=== PATIENT | female | born 1985 | race Caucasian/White ===

== ENCOUNTER → 2016-10-18 | Outpatient (CLI) | payer OTHER ==
--- NOTE | 2016-10-18 10:26 | MR ---
EXAMINATION TYPE: MR number spine wo con DATE OF EXAM: 10/18/2016 COMPARISON: NONE HISTORY: cervcialgia lumbago TECHNIQUE: T1 and T2 axial and sagittal images of the lumbar spine are submitted. FINDINGS: There is no abnormal signal seen within the visualized spinal cord or paraspinal soft tissu es. At L1-2 there is no disc herniation, canal stenosis, or foraminal encroachment. At L2-3 there is no disc herniation, canal stenosis, or foraminal encroachment At L3-4 there is no disc herniation, canal stenosis, or foraminal encroachment At L4-5 there is no disc herniation or canal stenosis, however, there is right lateral disc bulging w ith mild right-sided foraminal encroachment but no definite nerve root contact. At L5-S1 there is mild disc desiccation. Mild right lateral disc bulging results in mild right-sided foraminal encroachment. IMPRESSION: 1. Mild disc desiccation and right lateral disc bulging L5-S1 with mild right foraminal encroachment. 2. Right lateral disc bulging L4-L5 with mild right-sided foraminal encroachment but no nerve root co ntact. EXAMINATION TYPE: MR cervical spine wo con DATE OF EXAM: 10/18/2016 COMPARISON: NONE HISTORY: cervcialgia lumbago TECHNIQUE: T1 sagittal and coronal, T2 sagittal, and gradient echo axial views of the cervical spine are submitted. FINDINGS: Cerebellar tonsils are low-lying in position measuring approximately 2 mm below the foramen magnum. No tonsillar beaking.. There is no abnormal signal seen within the spinal cord or paraspina l soft tissues. At C2-3 there is no disc herniation, canal stenosis, or foraminal encroachment At C3-4 there is no disc herniation, canal stenosis, or foraminal encroachment At C4-5 there is minimal right paracentral disc bulging but no canal stenosis or foraminal encroachme nt. At C5-6 there is there is hypertrophic change of the uncovertebral joints and posterior spondylosis w ith broad-based disc bulging capped by spur. No Canal stenosis. Neural foramina remain patent. At C6-7 there is no disc herniation, canal stenosis, or foraminal encroachment At C7-T1 there is no disc herniation, canal stenosis, or foraminal encroachment IMPRESSION: 1. At C5-C6 there is posterior spondylosis and hypertrophic change of the uncovertebral joints with mild posterior disc bulging but no canal stenosis or foraminal encroachment. 2. Low-lying cerebellar tonsils.
--- NOTE | 2016-10-18 10:46 | XR ---
EXAMINATION TYPE: XR Hip Bilateral Complete DATE OF EXAM: 10/18/2016 CLINICAL HISTORY: Chronic bilateral hip pain TECHNIQUE: AP and frogleg views of the bilateral hips are obtained. COMPARISON: None. FINDINGS: There is no acute fracture/dislocation evident in either hip. The joint space in the bila teral hips appears within normal limits. There is os acetabuli on the left noted. Metallic IUD overli es the pelvis. IMPRESSION: No significant finding is seen to account for patient's symptoms.
--- NOTE | 2016-10-18 10:46 | XR ---
EXAMINATION TYPE: XR knee complete bilateral DATE OF EXAM: 10/18/2016 CLINICAL HISTORY: Chronic bilateral knee pain TECHNIQUE: Three views of the bilateral knees are obtained. COMPARISON: None. FINDINGS: There is no acute fracture/dislocation evident in either knee. The tri-compartment joint spaces appear within normal limits. There is broad-based bony projection from proximal tibial metaphy sis medial aspect left knee felt to reflect osteochondroma. The overlying soft tissue appears unrema rkable. IMPRESSION: There is left-sided osteochondroma suspected otherwise unremarkable study
--- NOTE | 2016-10-18 10:48 | XR ---
EXAMINATION TYPE: XR sacroiliac joint comp BILAT DATE OF EXAM: 10/18/2016 COMPARISON: NONE HISTORY: Sacroiliac joint pain TECHNIQUE: 2 views of sacroiliac joints are obtained. FINDINGS: Sacroiliac joints are symmetric and felt within normal limits. No suspicious spurring or sc lerosis is seen. No suspicious widening is present. Metallic IUD overlies the lower sacrum. IMPRESSION: As above.
== END | disposition home or self-care (01) ==
LOC: RADMRIMAIN 09:15
PROVIDERS: ATTEND Psychiatry & Neurology Pain Medicine
DX: M50.222 Other cervical disc displacement at C5-C6 level (principal); M51.27 Other intervertebral disc displacement, lumbosacral region; M47.812 Spondylosis without myelopathy or radiculopathy, cervical region; M25.561 Pain in right knee; M25.562 Pain in left knee; M25.551 Pain in right hip; M25.552 Pain in left hip
CPT/HCPCS: 72141; 72148; 72202; 73521

== ENCOUNTER 2017-11-08 14:31 | Emergency (ER) | payer OTHER ==
[2017-11-08 14:38] VITALS: BP 127/87; PULSE 77; RESP 16; TEMP 98.4
[2017-11-08] MEDS ORDERED: CYCLOBENZAPRINE 10 MG TAB PO STA (14:49)
[2017-11-08] MEDS ORDERED: KETOROLAC 60 MG/2 ML VIAL IM STA (14:49)
--- NOTE | 2017-11-08 14:54 | ED ---
Neck Injury/Pain HPI - General Chief Complaint: Neck Pain/Injury Stated Complaint: Neck pain Time Seen by Provider: 11/08/17 14:42 Source: patient, RN notes reviewed Mode of arrival: ambulatory Limitations: no limitations - History of Present Illness Initial Comments: 31-year-old female presented emergency department with chief complaint of left- sided neck pain. She states she woke up at 3 days ago. She states it hurts when she bends or twists her neck. Patient states that if she holds still. She states that she does have some improvement with anti-inflammatories and heat. Patient had issues with this in the past and she states muscle relaxers have improved her symptoms. Patient states that she was seen at [facility] exacerbation of her chronic back issues and was not given any medications. Patient had an MRI 6 months ago which showed bone sprain. She states she has some symptoms that radiate down her left arm denies any focal weakness or paresthesias. Denies any chest pain, shortness breath, palpitations. - Related Data Home Medications Medication Instructions Recorded Confirmed ALPRAZolam [Xanax] 0.25 mg PO BID PRN 05/14/14 05/14/14 Previous Rx's Medication Instructions Recorded Ciprofloxacin HCl [Cipro] 500 mg PO Q12HR 7 Days tablet 05/14/14 Cyclobenzaprine [Flexeril] 10 mg PO TID 7 Days tablet 02/28/16 Cyclobenzaprine [Flexeril] 10 mg PO TID PRN #15 tab 11/08/17 Ibuprofen [Motrin] 600 mg PO Q8HR PRN #30 tab 11/08/17 Allergies Allergy/AdvReac Type Severity Reaction Status Date / Time No Known Allergies Allergy Verified 11/08/17 14:38 Review of Systems ROS Statement: Those systems with pertinent positive or pertinent negative responses have been documented in the HPI. ROS Other: All systems not noted in ROS Statement are negative. Past Medical History Past Medical History: No Reported History Additional Past Medical History / Comment(s): anxiety History of Any Multi-Drug Resistant Organisms: None Reported Additional Past Surgical History / Comment(s): d & c Past Psychological History: Anxiety Smoking Status: Current every day smoker Past Alcohol Use History: Occasional Past Drug Use History: None Reported General Exam Limitations: no limitations General appearance: alert, in no apparent distress Head exam: Present: atraumatic, normocephalic, normal inspection Eye exam: Present: normal appearance, PERRL, EOMI. Absent: scleral icterus, conjunctival injection, periorbital swelling ENT exam: Present: normal exam, normal oropharynx, mucous membranes moist, TM's normal bilaterally Neck exam: Present: normal inspection, tenderness (Tenderness of the left cervical paraspinal, trapezius region). Absent: meningismus, full ROM ( Decreased range of motion secondary to pain), lymphadenopathy Respiratory exam: Present: normal lung sounds bilaterally. Absent: respiratory distress, wheezes, rales, rhonchi, stridor Cardiovascular Exam: Present: regular rate, normal rhythm, normal heart sounds. Absent: systolic murmur, diastolic murmur, rubs, gallop, clicks Extremities exam: Present: other (Upper extremity strength equal bilaterally neurovascular intact) Neurological exam: Present: alert, oriented X3, CN II-XII intact, reflexes normal. Absent: motor sensory deficit Course Vital Signs 11/08/17 14:37 Temperature 98.4 F Pulse Rate 77 Respiratory 16 Rate Blood Pressure 127/87 O2 Sat by Pulse 100 Oximetry Medical Decision Making - Medical Decision Making 31-year-old presented for left-sided neck pain. Patient has spasms of the left trapezius paraspinal muscles. Patient has no focal deficits she has had issues with this in the past and we treated with anti-inflammatories and muscle relaxers at this time. She'll continue gentle stretching and applying heat. Return parameters were discussed. Disposition Clinical Impression: Torticollis, Cervical muscle pain Disposition: HOME SELF-CARE Condition: Stable Instructions: Cervical Strain (ED) Additional Instructions: Please return to the Emergency Department if symptoms worsen or any other concerns. Prescriptions: Cyclobenzaprine [Flexeril] 10 mg PO TID PRN #15 tab PRN Reason: Muscle Spasm Ibuprofen [Motrin] 600 mg PO Q8HR PRN #30 tab PRN Reason: Pain Is patient prescribed a controlled substance at d/c from ED?: No Referrals: Elias Wynn MD [Primary Care Provider] - 1-2 days Time of Disposition: 14:53
== END 2017-11-08 15:00 | disposition home or self-care (01) ==
LOC: EC 14:31
DX: M43.6 Torticollis (principal); F41.9 Anxiety disorder, unspecified; F17.200 Nicotine dependence, unspecified, uncomplicated
CPT/HCPCS: 99283; 96372; J1885

== ENCOUNTER 2018-05-17 13:24 | Emergency (ER) | payer OTHER ==
[2018-05-17 13:31] VITALS: BP 129/86; PULSE 80; RESP 18; TEMP 97.8
[2018-05-17] MEDS ORDERED: DIPH,PERTUS(ACELL)TETVAC-LF 0.5 ML VIAL IM ONE (13:47)
--- NOTE | 2018-05-17 13:55 | ED ---
General Adult HPI - General Chief complaint: Wound/Laceration Stated complaint: Fall/Bottom Lip Injury Time Seen by Provider: 05/17/18 13:39 Source: patient, RN notes reviewed Mode of arrival: ambulatory Limitations: no limitations - History of Present Illness Initial comments: Patient 32-year-old female presented to the emergency room today with a chief complaint of a slip on the ice that occurred approximately 2 hours ago. She states she fell hitting her chin and believes that tooth causes laceration. She does admit to a laceration on the inside of the lower gum for small laceration on the outside to lower lip. States no loss of consciousness. Admits to jaw pain which opens and close on the left side. Denies any headache. States is unsure of her tetanus. Patient denies any recent fever, chills, shortness of breath, chest pain, back pain, abdominal pain, nausea or vomiting, numbness or tingling, headaches or visual changes, or any other complaints. - Related Data Previous Rx's Medication Instructions Recorded Cephalexin [Keflex] 500 mg PO Q12HR #10 cap 05/17/18 Allergies Allergy/AdvReac Type Severity Reaction Status Date / Time No Known Allergies Allergy Verified 11/08/17 14:38 Review of Systems ROS Statement: Those systems with pertinent positive or pertinent negative responses have been documented in the HPI. ROS Other: All systems not noted in ROS Statement are negative. Past Medical History Past Medical History: No Reported History Additional Past Medical History / Comment(s): anxiety History of Any Multi-Drug Resistant Organisms: None Reported Additional Past Surgical History / Comment(s): d & c Past Psychological History: Anxiety Smoking Status: Current every day smoker Past Alcohol Use History: Occasional Past Drug Use History: None Reported General Exam - General Exam Comments Initial Comments: General: The patient is awake and alert, in no distress, and does not appear acutely ill. Eye: Pupils are equal, round and reactive to light, extra-ocular movements are intact. No nystagmus. There is normal conjunctiva bilaterally. No signs of icterus. Ears, nose, mouth and throat: There are moist mucous membranes and no oral lesions. Normal appearance of the jaw. Patient's able to clench teeth. Able to open close fully. Neck: The neck is supple, there is no tenderness or JVD. Musculoskeletal: Normal ROM, no tenderness. Strength 5/5. Sensation intact. Pulses equal bilaterally 2+. Neurological: A&O x 3. CN II-XII intact, There are no obvious motor or sensory deficits. Coordination appears grossly intact. Speech is normal. Skin: Patient does have laceration to the inside of the lower lip on the right side. There is no bleeding. Small laceration running horizontally measuring half centimeter total length. No active bleeding. Psychiatric: Cooperative, appropriate mood & affect, normal judgment. Limitations: no limitations Course Vital Signs 05/17/18 13:27 Temperature 97.8 F Pulse Rate 80 Respiratory 18 Rate Blood Pressure 129/86 O2 Sat by Pulse 100 Oximetry Medical Decision Making - Medical Decision Making 32-year-old female presenting for slip and fall and laceration to the patient. Patient's tetanus will be updated. Laceration lower lip not crossing the vermilion border is approximated. Does not require suturing. Patient will be given short prescription of antibiotics cover for any infection. Advised to return for any other concerns. She states understanding and is in agreement. Disposition Clinical Impression: Laceration Disposition: HOME SELF-CARE Condition: Good Instructions: Laceration (DC) Additional Instructions: Please watch for signs of infection as discussed and use antibiotic as prescribed. Please return here to emergency room if any symptoms increase worsen or for any other concerns. Prescriptions: Cephalexin [Keflex] 500 mg PO Q12HR #10 cap Is patient prescribed a controlled substance at d/c from ED?: No Referrals: Elias Wynn MD [Primary Care Provider] - 1-2 days Time of Disposition: 13:55
== END 2018-05-17 14:26 | disposition home or self-care (01) ==
LOC: EC 13:24
DX: S01.511A Laceration without foreign body of lip, initial encounter (principal); R68.84 Jaw pain; F17.200 Nicotine dependence, unspecified, uncomplicated; Z23 Encounter for immunization; W00.0XXA Fall on same level due to ice and snow, initial encounter; W22.8XXA Striking against or struck by other objects, initial encounter; Y92.89 Other specified places as the place of occurrence of the external cause
CPT/HCPCS: 90471; 90715; 99283

== ENCOUNTER 2019-01-02 15:08 | Emergency (ER) | payer OTHER ==
[2019-01-02 15:16] VITALS: BP 120/89; PULSE 78; RESP 18; TEMP 98.1
--- NOTE | 2019-01-02 15:51 | ED ---
Upper Extremity HPI - General Chief Complaint: Extremity Injury, Upper Stated Complaint: dislocated Rt shoulder Time Seen by Provider: 01/02/19 15:17 Source: patient Mode of arrival: ambulatory Limitations: no limitations - History of Present Illness Initial Comments: Patient is a 33-year-old female presenting to the emergency Department with complaints of right shoulder pain that happened prior to arrival. Patient states she was driving her car went to [place] [facility] [place] and reach for something when she felt a very sharp pain in her right shoulder and right upper trap area. Patient states she is unable to move her right shoulder. Patient denies any previous injuries or surgeries of her right shoulder. Patient denies any numbness and tingling into the right approximately. Patient has no other complaints at this time. Upon arrival vital signs are stable. - Related Data Previous Rx's Medication Instructions Recorded Cephalexin [Keflex] 500 mg PO Q12HR #10 cap 05/17/18 Cyclobenzaprine [Flexeril] 5 mg PO TID PRN #10 tablet 01/02/19 Allergies Allergy/AdvReac Type Severity Reaction Status Date / Time No Known Allergies Allergy Verified 01/02/19 15:16 Review of Systems ROS Statement: Those systems with pertinent positive or pertinent negative responses have been documented in the HPI. ROS Other: All systems not noted in ROS Statement are negative. Past Medical History Past Medical History: No Reported History Additional Past Medical History / Comment(s): anxiety History of Any Multi-Drug Resistant Organisms: None Reported Additional Past Surgical History / Comment(s): d & c Past Psychological History: Anxiety Smoking Status: Current every day smoker Past Alcohol Use History: Occasional Past Drug Use History: None Reported General Exam - General Exam Comments Initial Comments: GENERAL: Well-appearing, well-nourished and in no acute distress. HEAD: Atraumatic, normocephalic. EYES: Pupils equal round and reactive to light, extraocular movements intact, sclera anicteric, conjunctiva are normal. ENT: TMs normal, nares patent, oropharynx clear without exudates. Moist mucous membranes. NECK: Normal range of motion, supple without lymphadenopathy or JVD. LUNGS: Breath sounds clear to auscultation bilaterally and equal. No wheezes rales or rhonchi. HEART: Regular rate and rhythm without murmurs, rubs or gallops. ABDOMEN: Soft, nontender, normoactive bowel sounds. No guarding, no rebound. No masses appreciated. : Deferred EXTREMITIES: Decreased range of motion with the right shoulder secondary to pain. Pain with palpation of the upper right trapezius muscle. Right elbow is normal range of motion. Neurovascular intact. No pitting or edema. No clubbing or cyanosis. NEUROLOGICAL: Cranial nerves II through XII grossly intact. Normal speech, normal gait. PSYCH: Normal mood, normal affect. SKIN: Warm, Dry, normal turgor, no rashes or lesions noted. Limitations: no limitations Course Vital Signs 01/02/19 15:13 Temperature 98.1 F Pulse Rate 78 Respiratory 18 Rate Blood Pressure 120/89 O2 Sat by Pulse 99 Oximetry Medical Decision Making - Medical Decision Making Patient is a 33-year-old female presenting with right shoulder pain prior to arrival. Patient states she was driving leaning on the [place] and reached and had pain in her right shoulder. No previous injuries or surgeries or recent shoulder. On exam patient has decreased range of motion with abduction and flexion secondary to pain. Patient has pain with palpation of the right upper trap area. X-rays reveal no acute abnormalities. Discussed with patient this is most likely a muscle spasm. Patient be given a trial of muscle relaxers and will use heat to the area. Patient is agreement with this plan of care. Patient stable for discharge. Return parameters were discussed with the patient she verbalized understanding. Disposition Clinical Impression: Trapezius muscle spasm Disposition: HOME SELF-CARE Condition: Stable Instructions (If sedation given, give patient instructions): Shoulder Pain (ED) Additional Instructions: Please return to the Emergency Department if symptoms worsen or any other co ncerns. Use heat and gentle stretching as well as muscle relaxers at night. Prescriptions: Cyclobenzaprine [Flexeril] 5 mg PO TID PRN #10 tablet PRN Reason: Muscle Spasm Is patient prescribed a controlled substance at d/c from ED?: No Referrals: Elias Wynn MD [Primary Care Provider] - 1-2 days
--- NOTE | 2019-01-02 15:57 | XR ---
EXAMINATION TYPE: XR shoulder complete RT DATE OF EXAM: 01/02/2019 COMPARISON: NONE HISTORY: Pain TECHNIQUE: 3 views FINDINGS: I see no fracture nor dislocation. Joint spaces appear normal. There are no pathologic calc ifications. IMPRESSION: Negative right shoulder exam.
== END 2019-01-02 16:12 | disposition home or self-care (01) ==
LOC: EC 15:08
DX: M62.838 Other muscle spasm (principal); F17.200 Nicotine dependence, unspecified, uncomplicated
CPT/HCPCS: 99283

== ENCOUNTER 2019-03-14 19:07 | Emergency (ER) | payer OTHER ==
[2019-03-14 19:12] VITALS: BP 132/78; PULSE 96; RESP 16; TEMP 97.3
--- NOTE | 2019-03-14 19:29 | ED ---
Chest Pain HPI - General Chief Complaint: Chest Pain Stated Complaint: rt sided rib pain Time Seen by Provider: 03/14/19 19:16 Source: patient, RN notes reviewed Mode of arrival: ambulatory Limitations: no limitations - History of Present Illness Initial Comments: This is a 33-year-old female with a benign history who states she's had a couple days of right-sided chest pain dull and achy and 6/10 severity it does get somewhat worse with deep breathing or with certain movements. She does state that she was sweeping up drywall dust a couple days ago but does not believe this precipitated she also does lifting at work but does not recall lifting anything out of the ordinary. No fevers chills nausea vomiting sweats cough she is a smoker. Patient states she does have a history of herniated disks in her back. This is different than that type of discomfort. No phlegm production. No palpitations no other modifying factors at this time she currently is on her menses. MD Complaint: chest pain - Related Data Previous Rx's Medication Instructions Recorded Cephalexin [Keflex] 500 mg PO Q12HR #10 cap 05/17/18 Cyclobenzaprine [Flexeril] 5 mg PO TID PRN #10 tablet 01/02/19 Ibuprofen [Motrin] 600 mg PO Q6HR PRN #20 tab 03/14/19 Allergies Allergy/AdvReac Type Severity Reaction Status Date / Time No Known Allergies Allergy Verified 03/14/19 19:12 Review of Systems ROS Statement: Those systems with pertinent positive or pertinent negative responses have been documented in the HPI. ROS Other: All systems not noted in ROS Statement are negative. EKG Findings - EKG Results: EKG: interpreted by JM, sinus rhythm (Sinus rhythm of 92. Interval 142 QRS 74 QT since QTC 354/[address]-T wave changes) Past Medical History Past Medical History: No Reported History Additional Past Medical History / Comment(s): anxiety History of Any Multi-Drug Resistant Organisms: None Reported Additional Past Surgical History / Comment(s): d & c Past Psychological History: Anxiety Smoking Status: Current every day smoker Past Alcohol Use History: Occasional Past Drug Use History: None Reported General Exam - General Exam Comments Initial Comments: This is a well-developed well-nourished awake alert oriented 3 female Limitations: no limitations General appearance: alert, in no apparent distress Head exam: Present: atraumatic, normocephalic, normal inspection Eye exam: Present: normal appearance, PERRL, EOMI. Absent: scleral icterus, conjunctival injection, periorbital swelling ENT exam: Present: normal exam, mucous membranes moist Neck exam: Present: normal inspection. Absent: tenderness, meningismus, lymphadenopathy Respiratory exam: Present: normal lung sounds bilaterally, chest wall tenderness (Tennis palpation on the right paraspinous muscles and right interosseous space of the right chest wall. No step-off or crepitation no rash noted.). Absent: respiratory distress, wheezes, rales, rhonchi, stridor Cardiovascular Exam: Present: regular rate, normal rhythm, normal heart sounds. Absent: systolic murmur, diastolic murmur, rubs, gallop, clicks GI/Abdominal exam: Present: soft, normal bowel sounds. Absent: distended, tenderness, guarding, rebound, rigid Extremities exam: Present: normal inspection, full ROM, normal capillary refill. Absent: tenderness, pedal edema, joint swelling, calf tenderness Back exam: Present: normal inspection Neurological exam: Present: alert, oriented X3, CN II-XII intact Psychiatric exam: Present: normal affect, normal mood Skin exam: Present: warm, dry, intact, normal color. Absent: rash Course Vital Signs 03/14/19 19:10 Temperature 97.3 F L Pulse Rate 96 Respiratory 16 Rate Blood Pressure 132/78 O2 Sat by Pulse 99 Oximetry Chest Pain MDM - MDM I did review the imaging and report no acute findings. Patient's presentation consistent with musculoskeletal pain and costochondritis I did discuss this with her. She'll be discharged with a prescription for ibuprofen. She is palpated doctor return when necessary Disposition Clinical Impression: Chest wall syndrome, Costochondritis Disposition: HOME SELF-CARE Condition: Good Instructions (If sedation given, give patient instructions): Costochondritis (ED) Prescriptions: Ibuprofen [Motrin] 600 mg PO Q6HR PRN #20 tab PRN Reason: Pain Is patient prescribed a controlled substance at d/c from ED?: No Referrals: Elias Wynn MD [Primary Care Provider] - 1-2 days
--- NOTE | 2019-03-14 20:26 | XR ---
EXAMINATION TYPE: XR chest 2V DATE OF EXAM: 03/14/2019 COMPARISON: NONE HISTORY: Right-sided chest pain TECHNIQUE: Frontal and lateral views of the chest are obtained. FINDINGS: Heart and mediastinum are normal. Lungs are clear. Diaphragm is normal. Bony thorax appear s normal. Pulmonary vascularity is normal. IMPRESSION: Normal chest.
[2019-03-14] MEDS ORDERED: IBUPROFEN 600 MG TAB PO STA (20:33)
== END 2019-03-14 20:48 | disposition home or self-care (01) ==
LOC: EC 19:07
DX: M94.0 Chondrocostal junction syndrome [Tietze] (principal); M79.18 Myalgia, other site; F17.200 Nicotine dependence, unspecified, uncomplicated
CPT/HCPCS: 71046; 93005; 99284

== ENCOUNTER 2020-05-27 20:42 | Emergency (ER) | payer OTHER ==
[2020-05-27 20:48] VITALS: TEMP 98.4
--- NOTE | 2020-05-27 21:08 | ED ---
General Adult HPI - General Chief complaint: Abdominal Pain Stated complaint: Flank Pain Time Seen by Provider: 05/27/20 20:49 Source: patient Mode of arrival: ambulatory Limitations: no limitations - History of Present Illness Initial comments: Dictation was produced using [employer] dictation software. please excuse any grammatical, word or spelling errors. This patient was cared for during a federal and state declared state of emerg ency secondary to Covid 19 Chief Complaint: 34-year-old female presents with right-sided flank pain, urinary symptoms History of Present Illness: Is 34-year-old female she has past we'll clean history of anxiety. Patient states that over the last several days she's been straining symptoms of urinary frequency urgency and mild dysuria. Patient's concerned she has a urinary tract infection. She is in a monogamous relation passive concern about sexual transmitted diseases. Over the last 24-48 hours she's been developing right-sided flank pain. Constitutional symptoms. She has in IUD that's been in place for 4-1/2 years. She was scheduled to have removal however the family lost their insurance. The ROS documented in this emergency department record has been reviewed and co nfirmed by me. Those systems with pertinent positive or negative responses have been documented in the HPI. All other systems are other negative and/or noncontributory. PHYSICAL EXAM: General Impression: Alert and oriented x3, not in acute distress HEENT: Normocephalic atraumatic, extra-ocular movements intact, pupils equal and reactive to light bilaterally, mucous membranes moist. Cardiovascular: Heart regular rate and rhythm Chest: Able to complete full sentences, no retractions, no tachypnea Abdomen: abdomen soft, non-tender, non-distended, no organomegaly Musculoskeletal: Pulses present and equal in all extremities, no peripheral edema, positive CVA pain to the right with thump Motor: no focal deficits noted Neurological: CN II-XII grossly intact, no focal motor or sensory deficits noted Skin: Intact with no visualized rashes Psych: Normal affect and mood ED course: 34-year-old female presents to the emergency department for right- sided flank pain and urinary symptoms. Vital signs upon arrival are within acceptable limits. Pelvic exam was performed. There was some slight discharge coming from the cervical os. IUD did see in place. No cervical motion tenderness or adnexal tenderness. Laboratory evaluation obtained. Mild leukocytosis at 12.8 with neutrophils of 8.2. Urinalysis shows greater than 182 white blood cells. Clinical presentation consistent with pyelonephritis. Patient currently stable. She is given 1 dose of ceftriaxone. She has no ALLERGIES to medications. Urine test is negative. Cervical swabs were sent for STD testing. Patient prescription for Keflex starter pack and prescription for Keflex. Return parameters discussed. Patient is agreeable to discharge. - Related Data Previous Rx's Medication Instructions Recorded Cephalexin [Keflex] 500 mg PO Q6HR 10 Days #40 cap 05/27/20 Allergies Allergy/AdvReac Type Severity Reaction Status Date / Time No Known Allergies Allergy Verified 05/27/20 21:39 Review of Systems ROS Statement: Those systems with pertinent positive or pertinent negative responses have been documented in the HPI. ROS Other: All systems not noted in ROS Statement are negative. Past Medical History Past Medical History: No Reported History Additional Past Medical History / Comment(s): anxiety History of Any Multi-Drug Resistant Organisms: None Reported Additional Past Surgical History / Comment(s): d & c Past Psychological History: Anxiety Smoking Status: Current every day smoker Past Alcohol Use History: Occasional Past Drug Use History: None Reported General Exam Limitations: no limitations Course Vital Signs 05/27/20 05/27/20 20:43 22:03 Temperature 98.4 F Pulse Rate 87 71 Respiratory 20 18 Rate Blood Pressure 132/94 136/91 O2 Sat by Pulse 99 100 Oximetry Medical Decision Making - Lab Data Result diagrams: 05/27/20 21:01 05/27/20 21:01 Lab Results 05/27/20 05/27/20 05/27/20 Range/Units 21:01 21:01 21:01 WBC 12.8 H (3.8-10.6) k/uL RBC 4.33 (3.80-5.40) m/uL Hgb 13.6 (11.4-16.0) gm/dL Hct 41.6 (34.0-46.0) % MCV 96.1 (80.0-100.0) fL MCH 31.4 (25.0-35.0) pg MCHC 32.7 (31.0-37.0) g/dL RDW 12.3 (11.5-15.5) % Plt Count 443 (150-450) k/uL MPV 7.1 Neutrophils % 64 % Lymphocytes % 25 % Monocytes % 5 % Eosinophils % 3 % Basophils % 1 % Neutrophils # 8.2 H (1.3-7.7) k/uL Lymphocytes # 3.2 (1.0-4.8) k/uL Monocytes # 0.6 (0-1.0) k/uL Eosinophils # 0.4 (0-0.7) k/uL Basophils # 0.1 (0-0.2) k/uL Sodium (137-145) mmol/L Potassium (3.5-5.1) mmol/L Chloride (98-107) mmol/L Carbon Dioxide (22-30) mmol/L Anion Gap mmol/L BUN (7-17) mg/dL Creatinine (0.52-1.04) mg/dL Est GFR (CKD-EPI)AfAm (>60 ml/min/1.73 sqM) Est GFR (CKD-EPI)NonAf (>60 ml/min/1.73 sqM) Glucose (74-99) mg/dL Calcium (8.4-10.2) mg/dL Total Bilirubin (0.2-1.3) mg/dL AST (14-36) U/L ALT (4-34) U/L Alkaline Phosphatase (38-126) U/L Total Protein (6.3-8.2) g/dL Albumin (3.5-5.0) g/dL Lipase (23-300) U/L Urine Color Light Yellow Urine Appearance Cloudy H (Clear) Urine pH 6.5 (5.0-8.0) Ur Specific [place] 1.016 (1.001-1.035) Urine Protein 1+ H (Negative) Urine Glucose (UA) Negative (Negative) Urine Ketones Negative (Negative) Urine Blood Small H (Negative) Urine Nitrite Negative (Negative) Urine Bilirubin Negative (Negative) Urine Urobilinogen <2.0 (<2.0) mg/dL Ur Leukocyte Esterase Large H (Negative) Urine RBC 26 H (0-5) /hpf Urine WBC >182 H (0-5) /hpf Urine WBC Clumps Many H (None) /hpf Ur Squamous Epith Cells 1 (0-4) /hpf Urine Bacteria Occasional H (None) /hpf Urine Mucus Rare H (None) /hpf Urine HCG, Qual Not Detected (Not Detectd) 01/30/21 Range/Units 21:01 WBC (3.8-10.6) k/uL RBC (3.80-5.40) m/uL Hgb (11.4-16.0) gm/dL Hct (34.0-46.0) % MCV (80.0-100.0) fL MCH (25.0-35.0) pg MCHC (31.0-37.0) g/dL RDW (11.5-15.5) % Plt Count (150-450) k/uL MPV Neutrophils % % Lymphocytes % % Monocytes % % Eosinophils % % Basophils % % Neutrophils # (1.3-7.7) k/uL Lymphocytes # (1.0-4.8) k/uL Monocytes # (0-1.0) k/uL Eosinophils # (0-0.7) k/uL Basophils # (0-0.2) k/uL Sodium 139 (137-145) mmol/L Potassium 4.4 (3.5-5.1) mmol/L Chloride 105 (98-107) mmol/L Carbon Dioxide 24 (22-30) mmol/L Anion Gap 10 mmol/L BUN 14 (7-17) mg/dL Creatinine 0.72 (0.52-1.04) mg/dL Est GFR (CKD-EPI)AfAm >90 (>60 ml/min/1.73 sqM) Est GFR (CKD-EPI)NonAf >90 (>60 ml/min/1.73 sqM) Glucose 75 (74-99) mg/dL Calcium 9.5 (8.4-10.2) mg/dL Total Bilirubin 0.4 (0.2-1.3) mg/dL AST 58 H (14-36) U/L ALT 61 H (4-34) U/L Alkaline Phosphatase 47 (38-126) U/L Total Protein 7.0 (6.3-8.2) g/dL Albumin 4.2 (3.5-5.0) g/dL Lipase 223 (23-300) U/L Urine Color Urine Appearance (Clear) Urine pH (5.0-8.0) Ur Specific [place] (1.001-1.035) Urine Protein (Negative) Urine Glucose (UA) (Negative) Urine Ketones (Negative) Urine Blood (Negative) Urine Nitrite (Negative) Urine Bilirubin (Negative) Urine Urobilinogen (<2.0) mg/dL Ur Leukocyte Esterase (Negative) Urine RBC (0-5) /hpf Urine WBC (0-5) /hpf Urine WBC Clumps (None) /hpf Ur Squamous Epith Cells (0-4) /hpf Urine Bacteria (None) /hpf Urine Mucus (None) /hpf Urine HCG, Qual (Not Detectd) Disposition Clinical Impression: Pyelonephritis Disposition: HOME SELF-CARE Condition: Fair Instructions (If sedation given, give patient instructions): Urinary Tract Infection in Women (ED) Additional Instructions: Today your clinical presentation was consistent with pyelonephritis. Pyelonephritis is when a infection begins to affect the kidney. Infections and kidney can progress causing severe sickness and sepsis. His important that he take antibiotics. Report also that you seek medical attention if your symptoms acutely worsen. Concerning symptoms that should cause you to seek immediate medical care would be fevers, worsening pain, generalized and worsening malaise. Please take your antibiotics as prescribed. Prescriptions: Cephalexin [Keflex] 500 mg PO Q6HR 10 Days #40 cap Is patient prescribed a controlled substance at d/c from ED?: No Referrals: None,Stated [Primary Care Provider] - 1-2 days Time of Disposition: 22:16
[2020-05-27 21:17] LABS: Basophils # (A) 0.1 k/uL (0-0.2); Basophils % (A) 1 %; Eosinophils # (A) 0.4 k/uL (0-0.7); Eosinophils % (A) 3 %; HCT 41.6 % (34.0-46.0); HGB 13.6 gm/dL (11.4-16.0); Lymphocytes # (A) 3.2 k/uL (1.0-4.8); Lymphocytes % (A) 25 %; MCH 31.4 pg (25.0-35.0); MCHC 32.7 g/dL (31.0-37.0); MCV 96.1 fL (80.0-100.0); Mean Platelet Volume 7.1; Monocytes # (A) 0.6 k/uL (0-1.0); Monocytes % (A) 5 %; Neutrophils # (A) 8.2 k/uL (1.3-7.7); Neutrophils % (A) 64 %; Platelet Count 443 k/uL (150-450); RBC 4.33 m/uL (3.80-5.40); RDW 12.3 % (11.5-15.5); WBC 12.8 k/uL (3.8-10.6)
[2020-05-27 21:22] LABS: Appearance,Urine Cloudy (Clear); Bacteria,Urine Occasional /hpf; Bilirubin,Urine Negative (Negative); Blood,Urine Small (Negative); Color,Urine Light Yellow; Glucose,Urine (UA) Negative (Negative); Ketones,Urine Negative (Negative); Leukocyte Esterase,Urine Large (Negative); Mucus,Urine Rare /hpf; Nitrite,Urine Negative (Negative); PH, Urine 6.5 (5.0-8.0); Protein,Urine 1+ (Negative); RBC,Urine 26 /hpf (0-5); Specific Gravity,Urine 1.016 (1.001-1.035); Squamous Epithelial Cell,Urine 1 /hpf (0-4); Urobilinogen,Urine <2.0 mg/dL (<2.0); WBC,Urine >182 /hpf (0-5)
[2020-05-27] MEDS ORDERED: cefTRIAXone IN SWFI 1,000 MG/10 ML SYRINGE IVP STA (21:36)
[2020-05-27 21:37] LABS: ALT 61 U/L (4-34); AST 58 U/L (14-36); African American GFR (CKD) >90 (>60 ml/min/1.73 sqM); Albumin 4.2 g/dL (3.5-5.0); Alkaline Phosphatase 47 U/L (38-126); Anion Gap 10 mmol/L; Blood Urea Nitrogen 14 mg/dL (7-17); Calcium 9.5 mg/dL (8.4-10.2); Carbon Dioxide 24 mmol/L (22-30); Chloride 105 mmol/L (98-107); Glucose 75 mg/dL (74-99); Lipase 223 U/L (23-300); Non-African American GFR(CKD) >90 (>60 ml/min/1.73 sqM); Sodium 139 mmol/L (137-145); Total Bilirubin 0.4 mg/dL (0.2-1.3)
[2020-05-27 21:43] LABS: Potassium 4.4 mmol/L (3.5-5.1)
[2020-05-27 22:03] VITALS: BP 136/91; PULSE 71; RESP 18
[2020-05-27] MEDS ORDERED: CEPHALEXIN 500MG STARTER PACK 4 CAP BTL PO STA (22:16)
== END 2020-05-27 22:30 | disposition home or self-care (01) ==
LOC: EC 20:42
DX: N12 Tubulo-interstitial nephritis, not specified as acute or chronic (principal); F17.200 Nicotine dependence, unspecified, uncomplicated
CPT/HCPCS: 36415; 80053; 83690; 85025; 81001; 81025; 87808; 87491; 87591; 87086; 99284; 96374; J0696